=== PATIENT | male | born 1960 | race Caucasian/White ===

== ENCOUNTER 2016-09-15 00:34 | Observation (INO) | payer BC ==
[~2016-09-15] VITALS: Ht 167.6 cm; Wt 85.5 kg
[~2016-09-15 00:34] MED LIST: CORTISPORIN EAR10 ML LEFT EAR; EPIPEN ADU0.3 MG/0.3 IM; Epipen Adult Autoinj IM; MECLIZINE HCL25 MG PO; PREDNISONE20 MG PO; PROAIR RESPICL90 MCG IH
[2016-09-15 01:01] LABS: HEMATOCRIT 46.9 % (38.0-50.0); MCH 27.5 PG (29.0-34.0); MCHC 33.5 G/DL (30.0-36.0); MCV 82.1 FL (86-99); MEAN PLAT.VOLUME 9.6 uM^3 (9.0-12.4); PLATELET COUNT 254 K/uL (156-360); RBC DIS.WIDTH-SD 38.8 % (39-53); RED BLOOD COUNT 5.71 M/uL (4.00-5.50); WHITE BLOOD COUNT 5.8 K/uL (4.1-10.2)
[2016-09-15 01:11] LABS: CHLORIDE 106 mEq/L (99-109); SODIUM 141 mEq/L (136-147)
[2016-09-15 01:13] LABS: GLUCOSE 101 mg/dL (70-99)
[2016-09-15 01:15] LABS: ANION GAP 9 MEQ/L (2-14)
[2016-09-15 01:17] LABS: GFR ESTIMATE (CALCULATED) > 59 mL/min/
[2016-09-15 01:18] LABS: UREA NITROGEN (BUN) 15 mg/dL (9-23)
[2016-09-15 01:21] LABS: TROP-I INTERPRETATION NEGATIVE; TROPONIN-I < 0.01 ng/mL (0.0-0.30)
[2016-09-15] MEDS ORDERED: ONE-A-DAY ESSE1 EAC1 PO (01:33)
[2016-09-15] MEDS ORDERED: TYLENOL EXTRA500 MG PO (01:33)
[2016-09-15 01:35] LABS: TOTAL BILIRUBIN 0.3 mg/dL (0.0-1.0)
[2016-09-15 01:36] LABS: ALKALINE PHOSPHATASE 48 IU/L (3-129)
[2016-09-15 01:38] LABS: D-DIMER ELISA < 0.15 mg/L FEU (< 0.57); DIRECT BILIRUBIN 0.1 mg/dL (0.0-0.3)
[2016-09-15 01:39] LABS: LIPASE 80 U/L (1.0-51.0)
[2016-09-15 07:57] LABS: TROP-I INTERPRETATION NEGATIVE; TROPONIN-I < 0.01 ng/mL (0.0-0.30)
[2016-09-15 14:07] LABS: TROP-I INTERPRETATION NEGATIVE; TROPONIN-I < 0.01 ng/mL (0.0-0.30)
[2016-09-15 16:48] VITALS: BP 141/84
[2016-09-15 20:40] VITALS: BP 130/76
[2016-09-16] VITALS: BP 109/61
[2016-09-16 04:18] VITALS: BP 114/57
[2016-09-16 06:37] LABS: HEMATOCRIT 46.7 % (38.0-50.0); MCH 28.2 PG (29.0-34.0); MCHC 33.2 G/DL (30.0-36.0); MCV 84.9 FL (86-99); MEAN PLAT.VOLUME 10.4 uM^3 (9.0-12.4); PLATELET COUNT 224 K/uL (156-360); RBC DIS.WIDTH-CV 12.9 % (11.8-14.6); RBC DIS.WIDTH-SD 39.8 % (39-53); WHITE BLOOD COUNT 5.6 K/uL (4.1-10.2)
[2016-09-16 07:15] LABS: ANION GAP 6 MEQ/L (2-14); CHLORIDE 103 MEQ/L (99-109); GFR ESTIMATE (CALCULATED) > 59 mL/min/; GLUCOSE 93 mg/dL (70-99); SAMPLE HEMOLYSIS CHECK 0; SAMPLE ICTERIC CHECK 0; SAMPLE LIPEMIA CHECK 0; SODIUM 138 MEQ/L (136-147); UREA NITROGEN (BUN) 11 mg/dL (9-23)
[2016-09-16 07:21] LABS: POTASSIUM 4.9 MEQ/L (3.7-5.4)
[2016-09-16 08:20] LABS: LIPASE 118 U/L (1.0-51.0)
[2016-09-16 08:31] VITALS: BP 117/65
[2016-09-16 12:54] VITALS: BP 118/70
[2016-09-16 16:00] VITALS: BP 131/84
[2016-09-16 20:18] VITALS: BP 134/85
[2016-09-17 04:24] VITALS: BP 118/70
[2016-09-17 08:00] VITALS: BP 111/68
[2016-09-17] MEDS ORDERED: ASPIR-LOW81 MG PO (08:15)
== END 2016-09-17 10:52 | disposition home or self-care (01) ==
LOC: EME 00:34 → 5WEST 02:13 → EDOF 02:13 → 5WEST 16:32
PROVIDERS: Hospitalist; Physician Assistant
DX: R07.9 Chest pain, unspecified (principal); K85.90 Acute pancreatitis without necrosis or infection, unspecified; R94.31 Abnormal electrocardiogram [ECG] [EKG]; Z88.1 Allergy status to other antibiotic agents; Z88.5 Allergy status to narcotic agent
CPT/HCPCS: 71020; 74176; 76705; 80048; 80076; 83690; 84484; 85027; 85379; 93005; 99281; 99285; G0378; J1650; J1885; J2060; J2270; J2405; J2765; J7030; S0028